=== PATIENT | male | born 1975 | race Caucasian/White ===

== ENCOUNTER 2017-12-14 12:19 | Emergency (ER) | payer OTHER ==
[2017-12-14 12:25] VITALS: BP 99/60; BMI 24.4
[2017-12-14 12:55] LABS: BILIRUBIN,URINE NEGATIVE (NEGATIVE); BLOOD/HEMOGLOBIN,URINE 5+ (NEGATIVE); GLUCOSE, URINE NEGATIVE (NEGATIVE); KETONES,URINE 1+ (NEGATIVE); LEUKOCYTE ESTERASE ,URINE 1+ (NEGATIVE); NITRITES,URINE NEGATIVE (NEGATIVE); PH,URINE 6.5 (5.0 - 8.0); PROTEIN,URINE 3+ (NEGATIVE); UROBILINOGEN,URINE NORMAL (NORMAL)
[2017-12-14 13:04] LABS: APPEARANCE,URINE CLOUDY (CLEAR); COLOR,URINE BLOODY (YELLOW); RBC,URINE TNTC /HPF (NONE SEEN)
[2017-12-14 13:07] LABS: BACTERIA,URINE TRACE /HPF (NEGATIVE); SQUAMOUS EPITHELIAL CELL,UR RARE /HPF (NEGATIVE)
--- NOTE | 2017-12-14 13:28 | DR.GENAD ---
HPI - PCP Primary Care Physician: shannon - Complaint/Symptoms Chief Complaint Doctors Comments: Patient is complaining of hematuria for the past two days getting worst today. States he had a similar episode three weeks ago and went to [facility] and they told him he had a UTI and gave him some antibiotics and the blood cleared up until two days ago it started again. He denies pain, dysuria, fever, chills, cold, cough or recent trauma. He denies history or family history or kidney stones. States he chew tobacco and drinks beer occassionally. states he does not have a local doctor and is rarely sick. States he is not hurting anywhere and has not had any weight loss. Chief Complaint:: "blood in my urine since. night" Self Treatment fo Chief Complaint: had the same problem a month ago and they treated me for a UTI - Nurses notes reviewed Nurses Notes Review: Yes - Source History Provided: Patient - Mode of Arrival Mode of Arrival: Ambulatory - Timing Onset of Chief Complaint: 12/12/17 - Duration Duration: Intermittent How lon Duration: Days - Location Location: no pain - Severity Severity: Moderate - Modifying Factors Worsens:: urinating Improves:: nothing PMH - PMH Past Medical History: No Past Surgical History: No - Family History History of Family Medical Conditions: Yes Family Medical History: Diabetes Mellitus, Cancer, Hypertension - Social History Does patient currently use any type of tobacco product: No Have you used tobacco products in the last 12 months: No Type of Tobacco Use: Smokeless Does any household member use tobacco: No Alcohol Use: None Do you use any recreational Drugs:: No Lives With: Family Lives Where: Home - infectious screening In the last 2 months have you had wt loss of >10#?: NO Have you had fever, night sweats or hemotysis?: No Have you traveled outside the country in the last 6 months?: No Isolation: Standard ROS - Review of Systems Constitutional: No Symptoms Reported. negative: See HPI, Chills, Diaphoresis, Fever, Malaise, Weakness, Irritable, Fatigue, Loss of Appetite, Other Eyes: No Symptoms Reported ENTM: No Symptoms Reported. negative: See HPI, Ear Pain, Ear Discharge, Pulling on Ears, Hearing Loss, Nose Pain, Nose Discharge, Epistaxis, Nose Congestion, Mouth Pain, Mouth Swelling, Loose Teeth, Drooling, Throat Pain, Throat Swelling, Ear Foreign Body Respiratoy: No Symptoms Reported. negative: See HPI, Productive Cough, Non- Productive Cough, Moist Cough, Dry Cough, Hacking Cough, Barking Cough, Brassy Cough, Orthopnea, Short of Breath, Stridor, Wheezing, Hemoptysis, Other Cardiovascular: No Symptoms Reported. negative: See HPI, Chest Pain, Edema, Palpitations, Syncope, Cyanosis, Skin Mottling, Other Gastrointestinal/Abdominal: No Symptoms Reported. negative: See HPI, Abdominal Pain, Constipation, Diarrhea, Nausea, Vomiting, Food Intolerance, Other Genitourinary: Hematuria. negative: No Symptoms Reported, See HPI, Discharge, Dysuria, Frequency, Pain, Bleeding, Other Neurological: No Symptoms Reported Musculoskeletal: No Symptoms Reported Integumentary: No Symptoms Reported. negative: See HPI, Change in Color, Change in Hair/Nails, Dryness, Lesions, Lumps, Rash, Itching, Wound, Bruises, Juandice, Other Hematologic/Lymphatic: No Symptoms Reported. negative: See HPI, Anemia, Blood Clots, Easy Bleeding, Easy Bruising, Swollen Glands, Lymphadenopathy, Other Endocrine: No Symptoms Reported Psychiatric: No Symptoms Reported. negative: See HPI, Anxiety, Depression, Hallucinations, Excessive crying, Suicidal, Other PE - Vital Signs Vitals: Temperature 98.6 F Pulse Rate 80 Respiratory Rate 18 Blood Pressure 99/60 O2 Sat by Pulse Oximetry 99 - General Limitations: No Limitations. negative: Language Barrier, Altered Mental Status , Physical Limitation, Other General Appearance: Alert, In No Apparent Distress. negative: Appears Intoxicated, Anxious, Lethargic, Obtunded, In Distress, Obese, Cachectic, Other - Head Head Exam: Normal Inspection, Atraumatic, Normocephalic - Eyes Eye exam: Normal Appearance, PERRL, EOMI. negative: Scleral Icterus, Conjunctival Injection, Nystagmus, Miosis, Mydrasis, Periorbital Swelling, Periorbital Tenderness, Other - ENT ENT Exam: Normal Exam, Normal Oropharynx, Normal External Ear Exam, Mucous Membranes Moist, TM's Normal Bilaterally External Ear Exam: Normal External Inspection TM/Canal Exam: Bilateral Normal Nose Exam: Normal Nose Exam Mouth Exam: Normal Inspection Throat Exam: Normal Inspection. negative: Tonsillar Erythema, Tonsillomegaly, Tonsillar Exudate, R Peritonsillar Mass, L Peritonsillar Mass, Muffled Voice, Other - Neck Neck Exam: Normal Inspection, Full ROM, Trachea Midline. negative: Tenderness, Meningismus, Lymphadenopathy, Thyromegaly, Other - Chest Chest Inspection: Normal Inspection, Symmetric Chest Wall Rise - Respiratory Respiratory Exam: Normal Lung Sounds Bilat Respiratory Exam: Bilateral Clear to Auscultation - Cardiovascular Cardiovascular Exam: Regular Rate, Normal Rhythm, Normal Heart Sounds. negative : Bradycardia, Tachycardia, Irregular Rhythm, Systolic Murmur, Diastolic Murmur , Rubs, Gallop, Clicks, JVD, +S1, +S2, +S3, +S4, Other - Abdominal Exam Abdominal Exam: Normal Inspection, Normal Bowel Sounds, Soft. negative: Tenderness (slight left lower quadrant discomfort) Abdominal Tenderness: LLQ, Mild. negative: RUQ, RLQ, LUQ, Epigastrium, Suprapubic, Diffuse, Moderate, Severe, Other - Extremities Extremities Exam: Normal Inspection, Full ROM, Normal Capillary Refill. negative: Tenderness, Edema, Joint Swelling, Calf Tenderness, Other - Back Back Exam: Normal Inspection, Full ROM. negative: Tenderness, (R) CVA Tenderness, (L) CVA Tenderness, Muscle Spasm, Paraspinal Tenderness, Vertebral Tenderness, Rashes, (R) Sciatic Notch Tenderness, (L) Sciatic Notch Tendern, (R ) Straight Leg Raise, (L) Straight Leg Raise, Other - Neurologic Neurological Exam: Alert, Oriented X3, CN II-XII Intact, Normal Gait, Reflexes Normal - Psychiatric Psychiatric Exam: Normal Affect, Normal Mood - Skin Skin Exam: Warm, Dry, Intact, Normal Color. negative: Rash, Cyanosis, Diaphoresis, Erythema, Pallor, Mottled, Other ROR - Labs Reviewed Laboratory Results Reviewed?: Yes (All labs and x-ray results reviewed and discussed with patient and ) Result Diagrams: 12/14/17 13:34 12/14/17 13:34 Laboratory: WBC 5.7 X10^3/uL (3.6-10.0) 12/14/17 13:34 RBC 4.75 X10^6/uL (4.7-6.0) 12/14/17 13:34 Hgb 14.4 g/dL (13.5-18.0) 12/14/17 13:34 Hct 40.9 % (42.0-54.0) L 12/14/17 13:34 MCV 86.2 fL (80.0-100.0) 12/14/17 13:34 MCH 30.3 pg (27.0-34.0) 12/14/17 13:34 MCHC 35.2 g/dL (33.0-35.0) H 12/14/17 13:34 RDW 12.8 % (11.6-16.5) 12/14/17 13:34 Plt Count 231 X10^3/uL (150.0-450.0) 12/14/17 13:34 MPV 8.0 fL (7.4-11.0) 12/14/17 13:34 Neut % (Auto) 53.0 % (42.0-75.0) 12/14/17 13:34 Lymph % (Auto) 35.0 % (21.0-51.0) 12/14/17 13:34 Twiggs % (Auto) 8.4 % (0.0-13.0) 12/14/17 13:34 Eos % (Auto) 2.9 % (0.9-2.9) 12/14/17 13:34 Baso % (Auto) 0.7 % (0.2-1.0) 12/14/17 13:34 Neut # (Auto) 3.0 x10^3/uL (2.2-4.8) 12/14/17 13:34 Lymph # (Auto) 2.0 X10^3/uL (1.3-2.9) 12/14/17 13:34 Twiggs # (Auto) 0.5 x10^3/uL (0.3-0.8) 12/14/17 13:34 Eos # (Auto) 0.2 x10^3/uL (0.0-0.2) 12/14/17 13:34 Baso # (Auto) 0.0 X10^3/uL (0.0-0.1) 12/14/17 13:34 Absolute Nucleated RBC 0.3 /100WBC 12/14/17 13:34 Sodium 143 mmol/L (136-145) 12/14/17 13:34 Corrected Sodium 144 mmol/L (136-145) 12/14/17 13:34 Potassium 3.9 mmol/L (3.5-5.1) 12/14/17 13:34 Chloride 107 mmol/L (98-107) 12/14/17 13:34 Carbon Dioxide 30.0 mmol/L (21-32) 12/14/17 13:34 BUN 13 mg/dL (7-18) 12/14/17 13:34 Creatinine 1.11 mg/dL (0.70-1.30) 12/14/17 13:34 Est GFR (MDRD) Af Amer > 60 (>60) 12/14/17 13:34 Est GFR (MDRD) Non-Af > 60 (>60) 12/14/17 13:34 Glucose 127 mg/dL (65-99) H 12/14/17 13:34 Calcium 8.7 mg/dL (8.5-10.1) 12/14/17 13:34 Corrected Calcium TNP 12/14/17 13:34 Total Bilirubin 0.30 mg/dL (0.2-1.0) 12/14/17 13:34 AST 21 Units/L (15-37) 12/14/17 13:34 ALT 41 Units/L (12-78) 12/14/17 13:34 Alkaline Phosphatase 80 Units/L (46-116) 12/14/17 13:34 Total Protein 7.1 g/dL (6.4-8.2) 12/14/17 13:34 Albumin 3.9 g/dL (3.4-5.0) 12/14/17 13:34 Globulin 3.2 g/dL (2.5-4.5) 12/14/17 13:34 Albumin/Globulin Ratio 1.2 Ratio (1.1-2.1) 12/14/17 13:34 Specimen Type Clean catch urine 12/14/17 12:42 Urine Color Bloody (YELLOW) 12/14/17 12:42 Urine Appearance Cloudy (CLEAR) 12/14/17 12:42 Urine pH 6.5 (5.0 - 8.0) 12/14/17 12:42 Ur Specific Antlers 1.020 (1.000-1.030) 12/14/17 12:42 Urine Protein 3+ (NEGATIVE) 12/14/17 12:42 Urine Glucose (UA) Negative (NEGATIVE) 12/14/17 12:42 Urine Ketones 1+ (NEGATIVE) 12/14/17 12:42 Urine Occult Blood 5+ (NEGATIVE) 12/14/17 12:42 Urine Nitrite Negative (NEGATIVE) 12/14/17 12:42 Urine Bilirubin Negative (NEGATIVE) 12/14/17 12:42 Urine Urobilinogen Normal (NORMAL) 12/14/17 12:42 Ur Leukocyte Esterase 1+ (NEGATIVE) 12/14/17 12:42 Urine RBC Tntc /HPF (NONE SEEN) 12/14/17 12:42 Urine WBC 0-2 /HPF (NONE SEEN) 12/14/17 12:42 Ur Squamous Epith Cells Rare /HPF (NEGATIVE) 12/14/17 12:42 Urine Bacteria Trace /HPF (NEGATIVE) 12/14/17 12:42 Ur Culture Indicated? No/not indicated 12/14/17 12:42 - XRAY XRAY Interpreted by: Radiologist (CT abdomen: 2.1 cm hyperdense focus within the bladder lumen that may represent blood versus a partially calcified mass) - Diagnosis Discharge Problem: Lesion of bladder Hematuria Qualifiers: Hematuria type: gross Qualified Code(s): R31.0 - Gross hematuria - Discharge Plan Disposition: 01 HOME, SELF-CARE Condition: Stable Prescriptions: Ciprofloxacin HCl [CIPRO 500 MG TAB *] 500 mg PO Q12H #20 tab - Follow ups/Referrals Follow ups/Referrals: ANDER WALSH [Primary Care Provider] - 3 days JULIANNE BENAVIDES [REFERRING] - 3 days - Instructions Instructions: Hematuria, Adult, Cystoscopy
[2017-12-14 13:57] LABS: BASOPHILS % (AUTO) 0.7 % (0.2-1.0); EOSINOPHILS # (AUTO) 0.2 x10^3/uL (0.0-0.2); EOSINOPHILS % (AUTO) 2.9 % (0.9-2.9); HEMATOCRIT 40.9 % (42.0-54.0); HEMOGLOBIN 14.4 g/dL (13.5-18.0); MEAN CORPUSCULAR HEMOGLOBIN 30.3 pg (27.0-34.0); MEAN CORPUSCULAR HGB CONC 35.2 g/dL (33.0-35.0); MEAN CORPUSCULAR VOLUME 86.2 fL (80.0-100.0); MONOCYTES # (AUTO) 0.5 x10^3/uL (0.3-0.8); MONOCYTES % (AUTO) 8.4 % (0.0-13.0); PLATELET COUNT 231 X10^3/uL (150.0-450.0); RED BLOOD COUNT 4.75 X10^6/uL (4.7-6.0); RED CELL DISTRIBUTION WIDTH 12.8 % (11.6-16.5); WHITE BLOOD COUNT 5.7 X10^3/uL (3.6-10.0)
[2017-12-14 13:58] LABS: ALANINE AMINOTRANSFERASE 41 Units/L (12-78); ALBUMIN 3.9 g/dL (3.4-5.0); ALKALINE PHOSPHATASE 80 Units/L (46-116); ASPARTATE AMINO TRANSFERASE 21 Units/L (15-37); BLOOD UREA NITROGEN 13 mg/dL (7-18); CALCIUM 8.7 mg/dL (8.5-10.1); CHLORIDE 107 mmol/L (98-107); COR NA(FOR HYPERGLY) 144 mmol/L (136-145); CREATININE 1.11 mg/dL (0.70-1.30); SODIUM 143 mmol/L (136-145); TOTAL PROTEIN 7.1 g/dL (6.4-8.2); eGFR BLACK RACES > 60 (>60); eGFR NON BLACK RACES > 60 (>60)
--- NOTE | 2017-12-14 14:25 | CT ---
HISTORY: Hematuria. Study: CT abdomen and pelvis without contrast Comparison: None. Technique: Multiple axial images of the abdomen and pelvis were obtained from the lung bases to the pubic symphy sis without the administration of IV contrast. Dose reduction techniques including Automated Exposur e Control (AEC) and adjustment of mA and kV were utilized. Findings: Limited study secondary to lack of IV and oral contrast. The visualized portions of the lung bases are unremarkable. The liver, spleen, pancreas, kidneys, an d adrenal glands are unremarkable in their CT appearance. The gallbladder is unremarkable in its CT a ppearance. No significant mesenteric lymphadenopathy or stranding can be observed. No free fluid or free air is seen within the abdomen. Limited evaluation of the large and small bowel secondary to c ollapse and lack of oral contrast. Remaining large and small bowel appear normal. Within the anterior /inferior bladder there is a 2.1 cm hyperdense focus with internal Hounsfield units of 90. This is in determinate. Remaining bladder is unremarkable. The bony structures are grossly intact. IMPRESSION: 2.1 cm hyperdense focus within the bladder lumen that may represent blood versus a parti ally calcified mass. Recommend Urology consultation and direct visualization. Reported By:
[2017-12-14] MEDS ORDERED: LEVAQUIN TAB 500 MG PO STA (14:47)
[2017-12-14] MEDS ORDERED: LEVAQUIN TAB 500 MG ONE (14:55)
== END 2017-12-14 14:59 | disposition home or self-care (01) ==
LOC: ER 12:31
DX: N32.89 Other specified disorders of bladder (principal); R31.0 Gross hematuria
CPT/HCPCS: 36415; 74176; 80053; 81001; 85025; 99282; 99283